=== PATIENT | female | born 1970 | race Caucasian/White ===

== ENCOUNTER → 2017-12-03 | Outpatient (CLI) | payer OTHER ==
[2017-12-03 10:42] VITALS: BMI 22.4
--- NOTE | 2017-12-03 11:44 | P.GSHP ---
History of Present Illness H&P Date: 12/03/17 Amira is a 47-year-old white female who presents with a complaint of a palpable mass which is painful in her left breast. She states it has been present for approximately one month. She underwent a bilateral mammogram 2017 which showed bilateral breast changes for which additional views of the right and left breasts were recommended an ultrasound for any persistent abnormality. Additional she has not had any further radiographic workup at this time. Patient has no nipple discharge or changes. The nodule in the left breast changes in size is decreased in size today but painful. family history: patient: cervical cancer times two, hysterectomy in 1998 partial both grandmothers: breast cancer uncle maternal: colon brother: colon cancer past surgical history: 1. partial hysterectomy 2. c section 3. surgery after child past medical history: 1. fibromyalgia menarche: 13 : 2, first at 21, breast feed none status post hysterectomy BCP: about 10 years started at 15 Hormones: none ROS: HEENT: tinnitus, blurred vision lungs: bronchitis heart: none GI: none musculskeletal: fibromyalgia neurologic: TIA skin: none Social history: smoke: stopped about one year ago alcohol: sparodically drugs: none - Constitutional Constitutional: Reports as per HPI, Reports sweats - EENT Comment: hoarseness whole life no changes seen an ENT Eyes: bilateral blurred vision Ears: bilateral: tinnitus Ears, nose, mouth and throat: Denies headache, Denies sore throat - Breasts Breasts: bilateral: as per HPI - Cardiovascular Cardiovascular: Reports as per HPI - Respiratory Respiratory: Reports as per HPI - Gastrointestinal Gastrointestinal: Reports as per HPI - Genitourinary (Female) Genitourinary: Reports as per HPI - Musculoskeletal Comment: fibromyalgia Musculoskeletal: Reports as per HPI - Integumentary Integumentary: Denies pruritus, Denies rash - Neurological Comment: TIA in the past Neurological: Denies numbness, Denies weakness - Psychiatric Psychiatric: Reports as per HPI, Reports anxiety - Endocrine Endocrine: Reports weight change, Denies fatigue - Hematologic/Lymphatic Comment: none - Allergic/Immunologic Comment: none Past Medical History History of Any Multi-Drug Resistant Organisms: None Reported Smoking Status: Unknown if ever smoked Surgical - Exam - General well developed, well nourished, moderate distress - Eyes normal ocular movement - ENT normal pinna, no hearing loss, no congestion - Neck no masses, trachea midline, no lymphadectomy, no venous distension - Respiratory normal respiratory effort, clear to auscultation - Cardiovascular Rhythm: regular Heart Sounds: normal: S1, S2 - Abdomen Abdomen: soft, non tender, no guarding, no rigid, no rebound - Neurologic no disoriented, no combative - Musculoskeletal normal gait, normal posture - Psychiatric oriented to time, oriented to person, oriented to place, speech is normal, memory intact Breast examination: Right breast: Multiple positional exam dense breast tissue no dominant masses or nodules of concern Left breast: Multiple positional exam large mass in the lateral aspect of the breast approximately 4-1/2-5 cm in size smooth walled borders Bilateral axilla no adenopathy of concern Assessment and Plan Assessment: Impression/plan: 1. Abnormal bilateral mammogram 2. Nodule in the left breast probable cyst 3. Fibromyalgia Plan: 1. Additional bilateral radiographs 2. Attempt at aspiration of area of concern in the left breast and bilateral additional radiographs as recommended per radiology Cc: Dr. Colón
--- NOTE | 2017-12-03 11:46 | P.PN ---
Progress Note - Text Progress Note Date: 12/03/17 Procedure documentation: Left breast mass: Procedure: Cyst aspiration left breast Surgeon: Alhaji anesthesia: None procedure the area of concern in the left breast was prepped using alcohol. 22-gauge needle was used to aspirate fluid from the area. The area was palpated and the needle was introduced into the area of concern. 15 mL of green colored fluid was obtained. This was somewhat thick in nature, no evidence of infection was noted. The fluid will be sent for cytology. The patient tolerated the procedure in stable condition The patient will follow with Dr. Mane in 2 weeks Fluid sent for cytology
--- NOTE | 2017-12-07 11:20 | MM ---
Reason for exam: additional evaluation requested from prior study. Last mammogram was performed less than 1 month ago. History: Patient history of other cancer. Family history of breast cancer in maternal grandmother and breast cancer in paternal grandmother. Cyst aspiration of the left breast, December 03, 2017. Took hormonal contraceptives beginning at age 15. Physical Findings: Nurse Summary: 1.5cm nodule in the left breast at 4 o'clock (nurse dw). MG Diagnostic Mammo RT w CAD Spot compression CC, spot compression MLO, and ML view(s) were taken of the right breast. Prior study comparison: November 19, 2017, mammogram, performed at [facility]. The breast tissue is heterogeneously dense. This may lower the sensitivity of mammography. Finding: There is a large typically benign 40 mm high density, circumscribed round mass located 3 cm from the nipple in the right breast. There is no discrete abnormality on compression upper outer quadrant right breast. These results were verbally communicated with the patient and result sheet given to the patient on 12/03/17. ASSESSMENT: Incomplete: need additional imaging evaluation, BI-RAD 0 RECOMMENDATION: Ultrasound. (left breast)
--- NOTE | 2017-12-07 11:22 | USB ---
Reason for exam: additional evaluation requested from abnormal screening. History: Patient history of other cancer. Family history of breast cancer in maternal grandmother and breast cancer in paternal grandmother. Cyst aspiration of the left breast, December 03, 2017. Took hormonal contraceptives beginning at age 15. US Breast LT Left complete breast ultrasound includes all four quadrants, the retroareolar region and axilla. Finding demonstrates a 3.1 x 1.3 x 3.3cm oval, cystic lesion at 4 o'clock BB correlates with palpable, a 0.8cm ova, cystic lesion at 4 o'clock BB correlates with palpable, a 0.9cm ova, cystic lesion at 9 o'clock and a 0.7cm oval, cystic lesion at 11 o'clock. Scattered cysts left breast. These results were verbally communicated with the patient and result sheet given to the patient on 12/03/17. ASSESSMENT: Benign, BI-RAD 2 RECOMMENDATION: Routine screening mammogram of both breasts in 1 year. (Seeing Dr. Machado in 2 weeks fol follow up)
== END | disposition home or self-care (01) ==
LOC: WWCWWP 10:28
PROVIDERS: ATTEND Surgery
DX: N60.82 Other benign mammary dysplasias of left breast (principal); R92.8 Other abnormal and inconclusive findings on diagnostic imaging of breast; Z80.3 Family history of malignant neoplasm of breast
CPT/HCPCS: 77065; 88108; 88305

== ENCOUNTER → 2017-12-17 | Outpatient (CLI) | payer OTHER ==
[2017-12-17 14:53] VITALS: BP 113/75; PULSE 65; TEMP 98.4; BMI 22.6
== END | disposition home or self-care (01) ==
LOC: RADMAMWWP 10:06
PROVIDERS: ATTEND Surgery
DX: Z53.9 Procedure and treatment not carried out, unspecified reason (principal)
CPT/HCPCS: 88108; 88305

== ENCOUNTER → 2018-01-07 | Outpatient (CLI) | payer OTHER ==
--- NOTE | 2018-01-10 08:44 | USB ---
Reason for exam: clinical finding. History: Patient history of other cancer. Family history of breast cancer in maternal grandmother and breast cancer in paternal grandmother. Cyst aspiration of the left breast, December 03, 2017. Took hormonal contraceptives beginning at age 15. US Breast RT Right complete breast ultrasound includes all four quadrants, the retroareolar region and axilla. Finding demonstrates a 1.3 x 0.4 x 1.2cm oval, benign, cystic lesion at 1 o'clock. These results were verbally communicated with the patient and result sheet given to the patient on 01/07/18. ASSESSMENT: Probably benign, BI-RAD 3 RECOMMENDATION: Follow-up diagnostic mammogram of both breasts in 6 months.
== END | disposition home or self-care (01) ==
LOC: RADUSWWP 10:08
PROVIDERS: ATTEND Surgery
DX: R92.8 Other abnormal and inconclusive findings on diagnostic imaging of breast (principal)

== ENCOUNTER → 2018-01-07 | Outpatient (CLI) | payer SELFPAY ==
[2018-01-07 11:21] VITALS: BP 111/67; PULSE 69; TEMP 96.2; BMI 22.6
--- NOTE | 2018-01-07 11:44 | P.PN ---
Subjective Progress Note Date: 01/07/18 The patient is a 47-year-old white female with bilateral breast pain. She has had a left cyst breast aspirated. She had bilateral mammograms and bilateral ultrasounds. Review of the radiographs with Dr. Anaya from radiology recommends bilateral 6 month repeat mammogram and left breast ultrasound. The patient today does not note any new masses or lumps in her breasts. Despite our conversation she continues to drink large amounts of products. She understands this may be contributing to her breast discomfort. Lungs: Clear Heart: Regular rate and rhythm Breast examination: Right breast: Multiple positional exam no dominant masses or nodules of concern tenderness consistent with fibrocystic changes Right axilla: No adenopathy of concern Left breast: Positional exam consistent with fibrocystic changes as well as some tenderness no dominant masses or nodules of concern left axilla: No adenopathy of concern Impression/plan: 1. Fibrocystic breast changes 2. Patient to have repeat bilateral mammogram in 6 months 3. Left breast ultrasound in 6 months 4. Follow-up evaluation in 6 months 5. Patient notes any changes prior would be happy to see her sooner CC: Dr. Obregon Objective - Vital Signs Vital signs: Vital Signs Temp 96.2 F L 01/07/18 11:15 Pulse 69 01/07/18 11:15 Resp BP 111/67 01/07/18 11:15 Pulse Ox 100 01/07/18 11:15 Intake & Output 01/06/18 01/07/18 01/07/18 18:59 06:59 18:59 Weight 59.874 kg
== END | disposition home or self-care (01) ==
LOC: WWCWWP 10:10
PROVIDERS: ATTEND Surgery
DX: N60.19 Diffuse cystic mastopathy of unspecified breast (principal)

== ENCOUNTER 2019-11-19 20:22 | Emergency (ER) | payer BC ==
[2019-11-19 20:30] VITALS: TEMP 98
[2019-11-19] MEDS ORDERED: SODIUM CHLORIDE 0.9% 1,000 ML IV STA (20:33)
[2019-11-19 20:35] LABS: Glucose,Whole Blood 146 mg/dL (75-99)
--- NOTE | 2019-11-19 20:47 | ED ---
General Adult HPI - General Chief complaint: Dizziness Stated complaint: dizziness Time Seen by Provider: 11/19/19 20:23 Source: patient, EMS Mode of arrival: EMS Limitations: no limitations - History of Present Illness Initial comments: This is a 49-year-old female patient presented to the emergency department via ambulance for evaluation of vomiting, dizziness, blurred vision. Patient states symptoms started around 5 PM this afternoon. States she was sitting at her computer working from home when she became very nauseated. States her symptoms. Difficult to concentrate. States she did start vomiting. After vomiting should have onset of dizziness and blurred vision. She denies any fever, abdominal pain, constipation, or diarrhea. Denies any chest pain or shortness of breath. States she did have some chills with onset of symptoms. States the dizziness was a lightheaded feeling. Denies any room spinning. She states she felt like she was going to pass out. Patient states she has a history of fibromyalgia but no other medical problems. Patient denies any recent rash, cough, back pain, numbness, tingling, dizziness, weakness, hematuria, dysuria, urinary urgency, urinary frequency, headache, visual changes, or any other complaints. - Related Data Previous Rx's Medication Instructions Recorded Ondansetron [Zofran ODT] 4 mg PO Q8HR PRN #15 tab 11/19/19 Allergies Allergy/AdvReac Type Severity Reaction Status Date / Time No Known Allergies Allergy Verified 11/19/19 21:16 Review of Systems ROS Statement: Those systems with pertinent positive or pertinent negative responses have been documented in the HPI. ROS Other: All systems not noted in ROS Statement are negative. Past Medical History Additional Past Medical History / Comment(s): cervical dysplasia 1990 AND 1996 History of Any Multi-Drug Resistant Organisms: None Reported Past Surgical History: Hysterectomy Additional Past Surgical History / Comment(s): hysterectomy 1998 Past Psychological History: No Psychological Hx Reported Smoking Status: Former smoker Past Alcohol Use History: None Reported Past Drug Use History: None Reported General Exam Limitations: no limitations General appearance: alert, in no apparent distress, other (This is a well- developed, well-nourished adult female patient in no acute distress. Vital signs upon presentation are temperature 98.0F, pulse 78, respiration 16, blood pressure 135/76, pulse ox 100% on room air.) Eye exam: Present: normal appearance, PERRL, EOMI. Absent: scleral icterus, conjunctival injection, periorbital swelling ENT exam: Present: normal exam, normal oropharynx, mucous membranes moist Neck exam: Present: normal inspection. Absent: tenderness, meningismus, lymphadenopathy Respiratory exam: Present: normal lung sounds bilaterally. Absent: respiratory distress, wheezes, rales, rhonchi, stridor Cardiovascular Exam: Present: regular rate, normal rhythm, normal heart sounds. Absent: systolic murmur, diastolic murmur, rubs, gallop, clicks GI/Abdominal exam: Present: soft, normal bowel sounds. Absent: distended, tende rness, guarding, rebound, rigid Neurological exam: Present: alert, oriented X3, CN II-XII intact Psychiatric exam: Present: normal affect, normal mood Skin exam: Present: warm, dry, intact, normal color. Absent: rash Course Vital Signs 11/19/19 11/19/19 11/19/19 20:27 21:05 23:44 Temperature 98 F Pulse Rate 78 79 86 Respiratory 16 18 16 Rate Blood Pressure 135/76 115/62 111/56 O2 Sat by Pulse 100 98 98 Oximetry EKG Findings - EKG Comments: EKG Findings:: EKG obtained at 2028 shows normal sinus rhythm with a ventricular to 69, TX interval 128, QRS duration 88, QT 426, QTc 456. No evidence of ST elevation or depression. Medical Decision Making - Medical Decision Making 49-year-old female patient presents to the emergency department today for evaluation of vomiting, dizziness, blurred vision. Physical examination reveals a soft nontender abdomen. She is neurologically intact with no focal deficits. Labs reviewed and did reveal elevated blood sugar, patient is not diabetic. Remainder of labs are unremarkable. She is acetone negative, no evidence for DKA. EKG showed normal sinus rhythm. She is given IV fluids, nausea medication. Upon reevaluation she does report improvement of symptoms. She'll be discharged home to follow-up with her primary care physician for recheck in 1-2 days. She is urged discussed the elevated blood sugar to be tested for diabetes. Return parameters were discussed in detail patient verbalizes understanding and agrees this plan. - Lab Data Result diagrams: 11/19/19 20:35 11/19/19 20:35 Lab Results 05/10/20 05/10/20 05/10/20 Range/Units 20:33 20:35 20:35 WBC 11.1 H (3.8-10.6) k/uL RBC 4.48 (3.80-5.40) m/uL Hgb 13.4 (11.4-16.0) gm/dL Hct 40.6 (34.0-46.0) % MCV 90.5 (80.0-100.0) fL MCH 30.0 (25.0-35.0) pg MCHC 33.1 (31.0-37.0) g/dL RDW 12.7 (11.5-15.5) % Plt Count 293 (150-450) k/uL Neutrophils % 80 % Lymphocytes % 13 % Monocytes % 5 % Eosinophils % 1 % Basophils % 0 % Neutrophils # 8.9 H (1.3-7.7) k/uL Lymphocytes # 1.5 (1.0-4.8) k/uL Monocytes # 0.5 (0-1.0) k/uL Eosinophils # 0.1 (0-0.7) k/uL Basophils # 0.0 (0-0.2) k/uL Sodium (137-145) mmol/L Potassium (3.5-5.1) mmol/L Chloride (98-107) mmol/L Carbon Dioxide (22-30) mmol/L Anion Gap mmol/L BUN (7-17) mg/dL Creatinine (0.52-1.04) mg/dL Est GFR (CKD-EPI)AfAm (>60 ml/min/1.73 sqM) Est GFR (CKD-EPI)NonAf (>60 ml/min/1.73 sqM) Glucose (74-99) mg/dL POC Glucose (mg/dL) 146 H (75-99) mg/dL POC Glu [employer] Meneses, Sowmya Calcium (8.4-10.2) mg/dL Phosphorus (2.5-4.5) mg/dL Magnesium (1.6-2.3) mg/dL Total Bilirubin (0.2-1.3) mg/dL AST (14-36) U/L ALT (4-34) U/L Alkaline Phosphatase (38-126) U/L Troponin I <0.012 (0.000-0.034) ng/mL Total Protein (6.3-8.2) g/dL Albumin (3.5-5.0) g/dL Urine Color Urine Appearance (Clear) Urine pH (5.0-8.0) Ur Specific [place] (1.001-1.035) Urine Protein (Negative) Urine Glucose (UA) (Negative) Urine Ketones (Negative) Urine Blood (Negative) Urine Nitrite (Negative) Urine Bilirubin (Negative) Urine Urobilinogen (<2.0) mg/dL Ur Leukocyte Esterase (Negative) Urine HCG, Qual (Not Detectd) Acetone, Qual (Negative) 11/19/19 11/19/19 11/19/19 Range/Units 20:35 21:45 21:45 WBC (3.8-10.6) k/uL RBC (3.80-5.40) m/uL Hgb (11.4-16.0) gm/dL Hct (34.0-46.0) % MCV (80.0-100.0) fL MCH (25.0-35.0) pg MCHC (31.0-37.0) g/dL RDW (11.5-15.5) % Plt Count (150-450) k/uL Neutrophils % % Lymphocytes % % Monocytes % % Eosinophils % % Basophils % % Neutrophils # (1.3-7.7) k/uL Lymphocytes # (1.0-4.8) k/uL Monocytes # (0-1.0) k/uL Eosinophils # (0-0.7) k/uL Basophils # (0-0.2) k/uL Sodium 136 L (137-145) mmol/L Potassium 4.1 (3.5-5.1) mmol/L Chloride 100 (98-107) mmol/L Carbon Dioxide 28 (22-30) mmol/L Anion Gap 8 mmol/L BUN 12 (7-17) mg/dL Creatinine 0.58 (0.52-1.04) mg/dL Est GFR (CKD-EPI)AfAm >90 (>60 ml/min/1.73 sqM) Est GFR (CKD-EPI)NonAf >90 (>60 ml/min/1.73 sqM) Glucose 152 H (74-99) mg/dL POC Glucose (mg/dL) (75-99) mg/dL POC Glu [employer] ID Calcium 9.7 (8.4-10.2) mg/dL Phosphorus 2.7 (2.5-4.5) mg/dL Magnesium 1.9 (1.6-2.3) mg/dL Total Bilirubin 0.2 (0.2-1.3) mg/dL AST 25 (14-36) U/L ALT 18 (4-34) U/L Alkaline Phosphatase 92 (38-126) U/L Troponin I (0.000-0.034) ng/mL Total Protein 7.5 (6.3-8.2) g/dL Albumin 4.6 (3.5-5.0) g/dL Urine Color Light Yellow Urine Appearance Clear (Clear) Urine pH 8.0 (5.0-8.0) Ur Specific [place] 1.008 (1.001-1.035) Urine Protein Negative (Negative) Urine Glucose (UA) Negative (Negative) Urine Ketones Negative (Negative) Urine Blood Negative (Negative) Urine Nitrite Negative (Negative) Urine Bilirubin Negative (Negative) Urine Urobilinogen <2.0 (<2.0) mg/dL Ur Leukocyte Esterase Negative (Negative) Urine HCG, Qual Not Detected (Not Detectd) Acetone, Qual Negative (Negative) - Radiology Data Radiology results: report reviewed, image reviewed Two-view x-ray of the chest is obtained. Report was reviewed in its entirety. Impression by Dr. Dr. Caro shows no acute cardio pulmonary process per Disposition Clinical Impression: Dizziness, Vomiting, Hyperglycemia Disposition: HOME SELF-CARE Condition: Good Instructions (If sedation given, give patient instructions): Acute Nausea and Vomiting (ED), Dizziness (ED), Diabetic Hyperglycemia (ED) Additional Instructions: Start with clear liquid diet and advance as tolerated. Take medication as directed. Follow-up with your primary care physician for further evaluation regarding her blood sugar, it was elevated. Return to the emergency department immediately for any new, worsening, or concerning symptoms. Prescriptions: Ondansetron [Zofran ODT] 4 mg PO Q8HR PRN #15 tab PRN Reason: Nausea Is patient prescribed a controlled substance at d/c from ED?: No Referrals: Natan Colón MD [Primary Care Provider] - 1-2 days Time of Disposition: 23:38
[2019-11-19 20:53] LABS: Basophils % (A) 0 %; Eosinophils # (A) 0.1 k/uL (0-0.7); Eosinophils % (A) 1 %; HCT 40.6 % (34.0-46.0); HGB 13.4 gm/dL (11.4-16.0); Lymphocytes # (A) 1.5 k/uL (1.0-4.8); Lymphocytes % (A) 13 %; MCHC 33.1 g/dL (31.0-37.0); MCV 90.5 fL (80.0-100.0); Mean Platelet Volume 8.2; Monocytes # (A) 0.5 k/uL (0-1.0); Monocytes % (A) 5 %; Neutrophils # (A) 8.9 k/uL (1.3-7.7); Neutrophils % (A) 80 %; Platelet Count 293 k/uL (150-450); RBC 4.48 m/uL (3.80-5.40); RDW 12.7 % (11.5-15.5); WBC 11.1 k/uL (3.8-10.6)
--- NOTE | 2019-11-19 20:54 | XR ---
EXAMINATION TYPE: XR chest 2V DATE OF EXAM: 11/19/2019 COMPARISON: NONE HISTORY: Dizziness and vomiting, syncope TECHNIQUE: Frontal and lateral views of the chest are obtained. FINDINGS: There is no focal air space opacity, pleural effusion, or pneumothorax seen. The cardiac silhouette size is within normal limits. The osseous structures are intact. There are overlying car diac leads. IMPRESSION: No acute cardiopulmonary process.
[2019-11-19 21:03] LABS: ALT 18 U/L (4-34); AST 25 U/L (14-36); African American GFR (CKD) >90 (>60 ml/min/1.73 sqM); Albumin 4.6 g/dL (3.5-5.0); Alkaline Phosphatase 92 U/L (38-126); Anion Gap 8 mmol/L; Blood Urea Nitrogen 12 mg/dL (7-17); Calcium 9.7 mg/dL (8.4-10.2); Carbon Dioxide 28 mmol/L (22-30); Chloride 100 mmol/L (98-107); Glucose 152 mg/dL (74-99); Magnesium 1.9 mg/dL (1.6-2.3); Non-African American GFR(CKD) >90 (>60 ml/min/1.73 sqM); Phosphorus 2.7 mg/dL (2.5-4.5); Potassium 4.1 mmol/L (3.5-5.1); Sodium 136 mmol/L (137-145); Total Bilirubin 0.2 mg/dL (0.2-1.3); Total Protein 7.5 g/dL (6.3-8.2)
[2019-11-19 21:56] LABS: Appearance,Urine Clear (Clear); Bilirubin,Urine Negative (Negative); Blood,Urine Negative (Negative); Color,Urine Light Yellow; Glucose,Urine (UA) Negative (Negative); Ketones,Urine Negative (Negative); Leukocyte Esterase,Urine Negative (Negative); Nitrite,Urine Negative (Negative); Protein,Urine Negative (Negative); Specific Gravity,Urine 1.008 (1.001-1.035); Urobilinogen,Urine <2.0 mg/dL (<2.0)
[2019-11-19] MEDS ORDERED: METOCLOPRAMIDE 5 MG/ML 2 ML VIAL IVP STA (22:22)
[2019-11-19] MEDS ORDERED: diphenhydrAMINE 50 MG/ML 1 ML VIAL IVP STA (22:22)
[2019-11-19 23:47] VITALS: BP 111/56; PULSE 86; RESP 16
== END 2019-11-19 23:52 | disposition home or self-care (01) ==
LOC: EC 20:22
DX: R73.9 Hyperglycemia, unspecified (principal); R42 Dizziness and giddiness; Z87.891 Personal history of nicotine dependence
CPT/HCPCS: 36415; 93005; 80053; 82009; 83735; 84100; 84484; 85025; 81003; 81025; 71046; 99285; 96374; 96375; 96361; J1200; J2765

== ENCOUNTER 2019-12-10 19:44 | Emergency (ER) | payer BC ==
[2019-12-10] MEDS ORDERED: HYDROmorphone 1 MG/ML 1 ML SYRINGE IVP STA (20:18)
[2019-12-10] MEDS ORDERED: diphenhydrAMINE 50 MG/ML 1 ML VIAL IVP STA (20:18)
[2019-12-10] MEDS ORDERED: ONDANSETRON 4 MG/2 ML VIAL IVP STA (20:19)
[2019-12-10] MEDS ORDERED: SODIUM CHLORIDE 0.9% 500 ML 500 ML IV ONE (20:33)
--- NOTE | 2019-12-10 20:42 | CT ---
EXAMINATION TYPE: CT brain wo con DATE OF EXAM: 12/10/2019 COMPARISON: 07/10/2012 HISTORY: Dizziness, nausea, and fatigue. CT DLP: 1082.4 mGycm Automated exposure control for dose reduction was used. Ventricles and sulci appear normal. There is no mass effect nor midline shift. There is no sign of in tracranial hemorrhage. The calvarium is intact. There is no evidence of cerebral edema. Skull base is intact. IMPRESSION: Normal unenhanced head CT scan. No change.
--- NOTE | 2019-12-10 21:15 | ED ---
Neuro HPI - General Chief Complaint: Neuro Symptoms/Deficit Stated Complaint: Nausea,Lightheaded Time Seen by Provider: 12/10/19 19:55 Source: patient Mode of arrival: wheelchair Limitations: no limitations - History of Present Illness Is the patient presenting with stroke symptoms?: No Initial Comments: 41-year-old female presenting today for chief complaint of headache. Patient states that she has history of chronic migraines she states she has had one while however around 645 she developed a headache she states it came on gradually and progressively worsened. She states she became lightheaded she denies sensation that the room is spinning. She states that while she is a computer screen seemed more blurry than usual. She states that she did have an episode of vomiting she states this typically does happen with her migraines. Patient denies any chest pain or short of breath. He denies any weakness of the upper or lower extremities sensation deficits. Patient denies any jaw or arm pain. Patient states she has had previous MRIs and has seen a neurologist in the past for similar complaint. Patient states that she has no known history of aneurysm she denies any neck pain. Patient denies speech changes. Patient has no additional complaints. - Related Data Home Medications: Previous Rx's Medication Instructions Recorded Ondansetron [Zofran ODT] 4 mg PO Q8HR PRN #15 tab 11/19/19 Allergies/Adverse Reactions: Allergies Allergy/AdvReac Type Severity Reaction Status Date / Time No Known Allergies Allergy Verified 12/10/19 19:50 Review of Systems ROS Statement: Those systems with pertinent positive or pertinent negative responses have been documented in the HPI. ROS Other: All systems not noted in ROS Statement are negative. General Exam - General Exam Comments Initial Comments: General: The patient is awake and alert, in no distress, and does not appear acutely ill. Eye: +3 mm pupils are equal, round and reactive to light, extra-ocular movements are intact. No nystagmus. There is normal conjunctiva bilaterally. No signs of icterus. Ears, nose, mouth and throat: There are moist mucous membranes and no oral lesions. Neck: The neck is supple, there is no tenderness or JVD. Cardiovascular: There is a regular rate and rhythm. No murmur, rub or gallop is appreciated. Respiratory: Lungs are clear to auscultation, respirations are non-labored, breath sounds are equal. No wheezes, stridor, rales, or rhonchi. Gastrointestinal: Soft, non-distended, non-tender abdomen without masses or organomegaly noted. There is no rebound or guarding present Musculoskeletal: Normal ROM, no tenderness. Strength 5/5. Sensation intact. Radial pulses equal bilaterally 2+. Neurological: A&O x 3. CN II-XII intact,memory intact to immediately, intermediate and terminal gauger recall. Able to follow simple verbal. Able to name a common object (pen). High quality, labial (pa) and lingual (la) speLight touch sensation present over the face, chest, abdomen, back, UE bilaterally, and LE bilaterally. Able to localize point during point localization b/l and extinction. No visible bulk atrophy, hypertrophy, fasciculations, or myoclonus of the UE or LE b/l. Full PROM in UE and LE b/l. Bilateral muscle strength 5/5 for the following muscles: deltoid, biceps, triceps, brachioradialis, wrist extensors/flexor, hip flexor, hip abductors/adductors, hamstrings, quadriceps, feet dorsiflexors/plantar flexors. Finger to nose, finger to the examiners finger, and heel to koenig coordinated and accurate b/l. Coordinated and even demonstration of hand flip, finger to thumb, and toe tap b/l. Gait is coordinated and even in stride with tandem(-) pronator drift. No nuchal rigidity. Skin: Skin is warm and dry and no rashes or lesions are noted. Psychiatric: Cooperative, appropriate mood & affect, normal judgment. Limitations: no limitations Stroke [facility] - Lab Data Result diagrams: 12/10/19 21:52 12/10/19 21:52 Lab Results 12/10/19 12/10/19 12/10/19 Range/Units 21:52 21:52 21:52 WBC 7.1 (3.8-10.6) k/uL RBC 4.19 (3.80-5.40) m/uL Hgb 12.8 (11.4-16.0) gm/dL Hct 37.7 (34.0-46.0) % MCV 89.9 (80.0-100.0) fL MCH 30.6 (25.0-35.0) pg MCHC 34.0 (31.0-37.0) g/dL RDW 12.6 (11.5-15.5) % Plt Count 231 (150-450) k/uL Neutrophils % 65 % Lymphocytes % 22 % Monocytes % 8 % Eosinophils % 1 % Basophils % 0 % Neutrophils # 4.6 (1.3-7.7) k/uL Lymphocytes # 1.6 (1.0-4.8) k/uL Monocytes # 0.5 (0-1.0) k/uL Eosinophils # 0.1 (0-0.7) k/uL Basophils # 0.0 (0-0.2) k/uL Sodium 136 L (137-145) mmol/L Potassium 4.1 (3.5-5.1) mmol/L Chloride 103 (98-107) mmol/L Carbon Dioxide 29 (22-30) mmol/L Anion Gap 4 mmol/L BUN 14 (7-17) mg/dL Creatinine 0.61 (0.52-1.04) mg/dL Est GFR (CKD-EPI)AfAm >90 (>60 ml/min/1.73 sqM) Est GFR (CKD-EPI)NonAf >90 (>60 ml/min/1.73 sqM) Glucose 123 H (74-99) mg/dL Calcium 9.5 (8.4-10.2) mg/dL Total Bilirubin 0.2 (0.2-1.3) mg/dL AST 21 (14-36) U/L ALT 14 (4-34) U/L Alkaline Phosphatase 92 (38-126) U/L Troponin I <0.012 (0.000-0.034) ng/mL Total Protein 7.0 (6.3-8.2) g/dL Albumin 4.2 (3.5-5.0) g/dL Urine Color Urine Appearance (Clear) Urine pH (5.0-8.0) Ur Specific Leeper (1.001-1.035) Urine Protein (Negative) Urine Glucose (UA) (Negative) Urine Ketones (Negative) Urine Blood (Negative) Urine Nitrite (Negative) Urine Bilirubin (Negative) Urine Urobilinogen (<2.0) mg/dL Ur Leukocyte Esterase (Negative) 12/10/19 Range/Units 22:21 WBC (3.8-10.6) k/uL RBC (3.80-5.40) m/uL Hgb (11.4-16.0) gm/dL Hct (34.0-46.0) % MCV (80.0-100.0) fL MCH (25.0-35.0) pg MCHC (31.0-37.0) g/dL RDW (11.5-15.5) % Plt Count (150-450) k/uL Neutrophils % % Lymphocytes % % Monocytes % % Eosinophils % % Basophils % % Neutrophils # (1.3-7.7) k/uL Lymphocytes # (1.0-4.8) k/uL Monocytes # (0-1.0) k/uL Eosinophils # (0-0.7) k/uL Basophils # (0-0.2) k/uL Sodium (137-145) mmol/L Potassium (3.5-5.1) mmol/L Chloride (98-107) mmol/L Carbon Dioxide (22-30) mmol/L Anion Gap mmol/L BUN (7-17) mg/dL Creatinine (0.52-1.04) mg/dL Est GFR (CKD-EPI)AfAm (>60 ml/min/1.73 sqM) Est GFR (CKD-EPI)NonAf (>60 ml/min/1.73 sqM) Glucose (74-99) mg/dL Calcium (8.4-10.2) mg/dL Total Bilirubin (0.2-1.3) mg/dL AST (14-36) U/L ALT (4-34) U/L Alkaline Phosphatase (38-126) U/L Troponin I (0.000-0.034) ng/mL Total Protein (6.3-8.2) g/dL Albumin (3.5-5.0) g/dL Urine Color Light Yellow Urine Appearance Clear (Clear) Urine pH 5.5 (5.0-8.0) Ur Specific Leeper 1.007 (1.001-1.035) Urine Protein Negative (Negative) Urine Glucose (UA) Negative (Negative) Urine Ketones Negative (Negative) Urine Blood Negative (Negative) Urine Nitrite Negative (Negative) Urine Bilirubin Negative (Negative) Urine Urobilinogen <2.0 (<2.0) mg/dL Ur Leukocyte Esterase Negative (Negative) - Medical Decision Making CXR clear. Labs unremarkable. Patient has history of migraines with similar symptoms. Not worst VELEZ of life. No sudden onset. CT (-) obtained wtihin 4 hours of onset. No focal neurological deficits. Patient EKG no acute findings. Tropinin (-) no chest pain no SOB. Patient appears well nontoxic. VS within acceptable limits. Discussed case wtih Dr. Garza who is agreeable to impression of migraine VELEZ. Recommended outpatient PCP f/u. Lory agreeable discharged appearing well. Past Medical History Additional Past Medical History / Comment(s): cervical dysplasia 1990 AND 1996 History of Any Multi-Drug Resistant Organisms: None Reported Past Surgical History: Hysterectomy Additional Past Surgical History / Comment(s): hysterectomy 1998 Past Psychological History: No Psychological Hx Reported Smoking Status: Former smoker Past Alcohol Use History: None Reported Past Drug Use History: None Reported Course Vital Signs 12/10/19 12/10/19 12/10/19 19:46 22:18 23:29 Temperature 97.5 F L 97.4 F L 98.2 F Pulse Rate 57 L 54 L 60 Respiratory 16 20 20 Rate Blood Pressure 142/82 121/68 122/65 O2 Sat by Pulse 100 98 99 Oximetry Disposition Clinical Impression: Headache, Lightheaded Disposition: HOME SELF-CARE Condition: Good Instructions (If sedation given, give patient instructions): Acute Headache (ED), Lightheadedness (ED) Additional Instructions: Please use medication as discussed. Please follow-up with family doctor in the next 2 days. Please return to emergency room if the symptoms increase or worsen or for any other concerns. Is patient prescribed a controlled substance at d/c from ED?: No Referrals: Natan Colón MD [Primary Care Provider] - 1-2 days Time of Disposition: 23:06
--- NOTE | 2019-12-10 22:09 | XR ---
EXAMINATION TYPE: XR chest 2V DATE OF EXAM: 12/10/2019 COMPARISON: 11/19/2019 HISTORY: Syncope. TECHNIQUE: FINDINGS: Heart and mediastinum are normal. Lungs are clear. Diaphragm is normal. Bony thorax appears normal. IMPRESSION: Normal chest. No change.
[2019-12-10 22:11] LABS: Basophils % (A) 0 %; Eosinophils # (A) 0.1 k/uL (0-0.7); Eosinophils % (A) 1 %; HCT 37.7 % (34.0-46.0); HGB 12.8 gm/dL (11.4-16.0); Lymphocytes # (A) 1.6 k/uL (1.0-4.8); Lymphocytes % (A) 22 %; MCH 30.6 pg (25.0-35.0); MCV 89.9 fL (80.0-100.0); Mean Platelet Volume 8.4; Monocytes # (A) 0.5 k/uL (0-1.0); Monocytes % (A) 8 %; Neutrophils # (A) 4.6 k/uL (1.3-7.7); Neutrophils % (A) 65 %; Platelet Count 231 k/uL (150-450); RBC 4.19 m/uL (3.80-5.40); RDW 12.6 % (11.5-15.5); WBC 7.1 k/uL (3.8-10.6)
[2019-12-10 22:21] LABS: ALT 14 U/L (4-34); AST 21 U/L (14-36); African American GFR (CKD) >90 (>60 ml/min/1.73 sqM); Albumin 4.2 g/dL (3.5-5.0); Alkaline Phosphatase 92 U/L (38-126); Anion Gap 4 mmol/L; Blood Urea Nitrogen 14 mg/dL (7-17); Calcium 9.5 mg/dL (8.4-10.2); Carbon Dioxide 29 mmol/L (22-30); Chloride 103 mmol/L (98-107); Glucose 123 mg/dL (74-99); Non-African American GFR(CKD) >90 (>60 ml/min/1.73 sqM); Potassium 4.1 mmol/L (3.5-5.1); Sodium 136 mmol/L (137-145); Total Bilirubin 0.2 mg/dL (0.2-1.3)
[2019-12-10 22:25] VITALS: RESP 20
[2019-12-10 22:42] LABS: Appearance,Urine Clear (Clear); Bilirubin,Urine Negative (Negative); Blood,Urine Negative (Negative); Color,Urine Light Yellow; Glucose,Urine (UA) Negative (Negative); Ketones,Urine Negative (Negative); Leukocyte Esterase,Urine Negative (Negative); Nitrite,Urine Negative (Negative); PH, Urine 5.5 (5.0-8.0); Protein,Urine Negative (Negative); Specific Gravity,Urine 1.007 (1.001-1.035); Urobilinogen,Urine <2.0 mg/dL (<2.0)
[2019-12-10 23:33] VITALS: BP 122/65; PULSE 60; TEMP 98.2
== END 2019-12-10 23:33 | disposition home or self-care (01) ==
LOC: EC 19:44
DX: R42 Dizziness and giddiness (principal); R51 Headache; R11.2 Nausea with vomiting, unspecified; H53.8 Other visual disturbances; Z86.69 Personal history of other diseases of the nervous system and sense organs; Z87.891 Personal history of nicotine dependence
CPT/HCPCS: 99284; 96374; 96375 ×2; 96361; 36415; 93005; 80053; 84484; 85025; 81003; 71046; 70450; J1200; J2405; J1170